=== PATIENT | female | born 1990 | race Caucasian/White ===

== ENCOUNTER 2021-06-24 06:06 | Day surgery (SDC) | payer OTHER, MEDICAID, SELFPAY ==
[~2021-06-24] VITALS: Ht 151.1 cm; Wt 53.1 kg
[2021-06-24 06:39] LABS: HCG,QUAL RESULT NEGATIVE (NEGATIVE)
[2021-06-24] MEDS ORDERED: CEFAZOLIN SOD 1 GM in D5W 50 ML IV ONE (07:00)
[2021-06-24] MEDS ORDERED: NS 1000 ML IV.SOLN IV ONE (07:46)
[2021-06-24] MEDS ORDERED: SEVOFLURANE 15 MIN GAS INH ONE (07:46)
[2021-06-24] MEDS ORDERED: MIDAZOLAM HCL 5 MG/5 ML VIAL IVP ONE (07:46)
[2021-06-24] MEDS ORDERED: WATER FOR IRRIGATION,STERILE 1,000 ML IRRIG.SOLN IR ONE (07:46)
[2021-06-24] MEDS ORDERED: LR 1,000 ML IV.SOLN IV ONE (07:46)
[2021-06-24] MEDS ORDERED: BUPIVACAINE /PF 0.25% 30 ML VIAL INJ ONE (07:46)
[2021-06-24] MEDS ORDERED: VECURONIUM BROMIDE 10 MG/VIAL (NORCURON) IV ONE (07:46)
[2021-06-24] MEDS ORDERED: fentaNYL CITRATE/PF 100 MCG/2 ML AMP IVP ONE (07:46)
[2021-06-24] MEDS ORDERED: ETOMIDATE 20 MG/ 10 ML VIAL (AMIDATE) IVP ONE (07:46)
[2021-06-24] MEDS ORDERED: HYDROmorphone 1 MG/ML INJ. CARTRIDGE IVP PRN (09:00)
[2021-06-24] MEDS ORDERED: HYDROcodone/ACETAMIN 5-325 MG TAB (NORCO/ VICODIN) PO PRN ×2 (09:00)
[2021-06-24] MEDS ORDERED: D5/0.45 NS 1,000 ML IV SCH (09:00)
[2021-06-24 11:03] VITALS: BP_SYST 140
== END 2021-06-24 12:45 | disposition home or self-care (01) ==
LOC: SDS 06:06 → SMU 06:09 → SDS 12:45
PROVIDERS: ATTEND Colon & Rectal Surgery
DX: K80.10 Calculus of gallbladder with chronic cholecystitis without obstruction (principal); G40.909 Epilepsy, unspecified, not intractable, without status epilepticus; Z20.822 Contact with and (suspected) exposure to COVID-19; Z79.899 Other long term (current) drug therapy
CPT/HCPCS: 47563; 74300; 84703; 88304; C1727; C1758; J0690; J2250; J3010; J3490 ×3; J7030; J7060; J7120; Q9967; U0003; 76000